=== PATIENT | female | born 1970 | race Caucasian/White ===

== ENCOUNTER 2017-09-01 16:49 | Emergency (ER) | payer SELFPAY ==
[~2017-09-01] VITALS: Ht 162.6 cm; Wt 80.0 kg
[2017-09-01] MEDS ORDERED: KETOROLAC 30MG/ML VIAL IV STA (19:36)
[2017-09-01] MEDS ORDERED: ONDANSETRON HCL 4MG/2ML VIAL IV STA (19:36)
[2017-09-01] MEDS ORDERED: SODIUM CHLORIDE 0.9% 1,000 ML IV ONE (19:36)
[2017-09-01 20:02] LABS: BASOPHILS % 0.8 % (0.0-2.0); EOSINOPHILS % 1.8 % (0.0-5.0); HEMOGLOBIN. 14.4 g/dL (12.0-16.0); LYMPHOCYTES % 36.6 % (20.0-50.0); MEAN CORPUSCULAR HEMOGLOBIN 30.9 pg (28.0-32.0); MEAN PLATELET VOLUME 7.7 fl (7.4-10.4); MONOCYTES % 8.3 % (2.0-8.0); NEUTROPHILS % 52.5 % (40.0-76.0); PLATELET 268 x1000/uL (130-400); RED BLOOD CELL COUNT 4.67 mill/uL (4.2-5.4); RED CELL DISTRIBUTION WIDTH 13.4 % (11.6-14.6)
[2017-09-01 20:05] LABS: CHLORIDE 106 mEq/L (98-107)
[2017-09-01 20:07] LABS: PROTHROMBIN TIME 10.4 sec (9.4-11.6)
[2017-09-01 20:15] LABS: CARBON DIOXIDE 27 mEq/L (21-32)
[2017-09-01 22:45] VITALS: BP 127/79
[2017-09-01] MEDS ORDERED: ACETAMINOPHEN WITH CODEINE 300/30MG TABLET PO ONE (22:45)
== END 2017-09-01 22:40 | disposition home or self-care (01) ==
LOC: ER 16:58
DX: K80.50 Calculus of bile duct without cholangitis or cholecystitis without obstruction (principal); K57.30 Diverticulosis of large intestine without perforation or abscess without bleeding; N83.202 Unspecified ovarian cyst, left side; D25.9 Leiomyoma of uterus, unspecified
CPT/HCPCS: 36415; 74176; 80053; 83690; 85025; 85610; 96361; 96374; 96375; 99285; J1885; J2405; J7030; Z7610

== ENCOUNTER 2019-06-24 23:14 | Emergency (ER) | payer OTHER, MEDICAID ==
[~2019-06-24] VITALS: Ht 172.7 cm; Wt 100.0 kg
[2019-06-25] MEDS ORDERED: IBUPROFEN 600MG TABLET PO ONE (00:45)
[2019-06-25 03:40] VITALS: BP 159/89
== END 2019-06-25 03:40 | disposition home or self-care (01) ==
LOC: ER 23:14
DX: S90.32XA Contusion of left foot, initial encounter (principal); W25.XXXA Contact with sharp glass, initial encounter; Y93.89 Activity, other specified; Y92.89 Other specified places as the place of occurrence of the external cause; Y99.8 Other external cause status; J45.909 Unspecified asthma, uncomplicated; Z90.49 Acquired absence of other specified parts of digestive tract; Z98.890 Other specified postprocedural states; Z90.89 Acquired absence of other organs; F17.200 Nicotine dependence, unspecified, uncomplicated
CPT/HCPCS: 73630; 99283

== ENCOUNTER 2021-10-03 12:29 | Emergency (ER) | payer OTHER ==
[~2021-10-03] VITALS: Ht 177.8 cm; Wt 91.0 kg
[~2021-10-03 12:29] MED LIST: CLOT21CR VG; METF-416 PO
[2021-10-03] MEDS ORDERED: ACETAMINOPHEN 325MG TABLET PO ONE (14:45)
[2021-10-03] MEDS ORDERED: IBUPROFEN 600MG TABLET PO ONE (16:15)
[2021-10-03 16:19] LABS: BASOPHILS % 0.3 % (0.0-2.0); EOSINOPHILS % 0.5 % (0.0-5.0); HEMATOCRIT. 43.9 % (36.0-48.0); HEMOGLOBIN. 14.7 g/dL (12.0-16.0); LYMPHOCYTES % 12.7 % (20.0-50.0); MEAN CORPUSCULAR HEMOGLOBIN 29.8 pg (28.0-32.0); MEAN CORPUSCULAR VOLUME 89.4 fL (81.0-99.0); MONOCYTES % 7.9 % (2.0-8.0); NEUTROPHILS % 78.6 % (40.0-76.0); PLATELET 267 x1000/uL (130-400); RED BLOOD CELL COUNT 4.91 mill/uL (4.2-5.4); RED CELL DISTRIBUTION WIDTH 13.3 % (11.6-14.6)
[2021-10-03 16:29] LABS: CHLORIDE 105 mEq/L (98-107)
[2021-10-03] MEDS ORDERED: CYCLOBENZAPRINE 10MG TABLET PO ONE (16:30)
[2021-10-03 16:45] LABS: CLARITY URINE CLEAR (CLEAR); COLOR URINE YELLOW (YELLOW); KETONES URINE TRACE (NEGATIVE); LEUKOCYTE ESTERASE URINE TRACE (NEGATIVE); NITRITE URINE NEGATIVE (NEGATIVE); OCCULT BLOOD URINE NEGATIVE (NEGATIVE); PH URINE 6.5 (4.5-8.0); PROTEIN URINE TRACE (NEGATIVE); SPECIFIC GRAVITY URINE 1.027 (1.005-1.030); UROBILINOGEN URINE 0.2 E.U./dL (0.2-1.0)
[2021-10-03] MEDS ORDERED: IBUP-2028 MT (19:03)
[2021-10-03] MEDS ORDERED: CIPR-263 MT (19:03)
[2021-10-03] MEDS ORDERED: CYCL10TA7 MT (19:03)
[2021-10-03 19:40] VITALS: BP 135/77
== END 2021-10-03 19:40 | disposition home or self-care (01) ==
LOC: ER 12:51
DX: N39.0 Urinary tract infection, site not specified (principal); M79.18 Myalgia, other site; J45.909 Unspecified asthma, uncomplicated; E11.9 Type 2 diabetes mellitus without complications; Z87.440 Personal history of urinary (tract) infections; Z90.49 Acquired absence of other specified parts of digestive tract; Z79.899 Other long term (current) drug therapy
CPT/HCPCS: 36415; 71045; 73030; 73562; 73630; 80053; 81003; 85025; 93005; 99285

== ENCOUNTER 2022-06-06 04:16 | Emergency (ER) | payer OTHER ==
[~2022-06-06] VITALS: Ht 172.7 cm; Wt 95.0 kg
[~2022-06-06 04:16] MED LIST changes: +CIPR-263 MT; +CYCL10TA21 MT; +IBUP-2028 MT
[2022-06-06 04:26] VITALS: BP 160/93
[2022-06-06 05:20] LABS: CLARITY URINE CLEAR (CLEAR); COLOR URINE YELLOW (YELLOW); KETONES URINE TRACE (NEGATIVE); LEUKOCYTE ESTERASE URINE NEGATIVE (NEGATIVE); NITRITE URINE NEGATIVE (NEGATIVE); OCCULT BLOOD URINE NEGATIVE (NEGATIVE); PROTEIN URINE TRACE (NEGATIVE); SPECIFIC GRAVITY URINE 1.033 (1.005-1.030); UROBILINOGEN URINE 0.2 E.U./dL (0.2-1.0)
[2022-06-06] MEDS ORDERED: ACYC200C31 MT (06:06)
[2022-06-06] MEDS ORDERED: FLUC150T46 MT (06:06)
== END 2022-06-06 06:20 | disposition home or self-care (01) ==
LOC: ER 04:16
DX: B00.89 Other herpesviral infection (principal); B37.3 Candidiasis of vulva and vagina
CPT/HCPCS: 81003; 81025; 99283

== ENCOUNTER 2023-11-25 07:41 | Emergency (ER) | payer OTHER ==
[~2023-11-25] VITALS: Ht 175.3 cm; Wt 65.0 kg
[~2023-11-25 07:41] MED LIST changes: +ACYC200C31 MT; +FLUC150T46 MT
[2023-11-25 07:47] VITALS: O2SAT 98
[2023-11-25] MEDS: SODIUM CHLORIDE 0.9% 1,000 ML IV ONE ×2 (08:34→09:49)
[2023-11-25 08:40] LABS: BASOPHILS % 0.2 % (0.0-2.0); EOSINOPHILS % 0.1 % (0.0-5.0); HEMATOCRIT. 53.5 % (36.0-48.0); HEMOGLOBIN. 17.3 g/dL (12.0-16.0); LYMPHOCYTES % 13.4 % (20.0-50.0); MEAN CORPUSCULAR HEMOGLOBIN 30.5 pg (28.0-32.0); MEAN CORPUSCULAR HGB CONC 32.3 g/dL (31.0-37.0); MEAN CORPUSCULAR VOLUME 94.3 fL (81.0-99.0); MEAN PLATELET VOLUME 10.5 fl (7.4-10.4); MONOCYTES % 2.9 % (2.0-8.0); NEUTROPHILS % 83.4 % (40.0-76.0); PLATELET 334 x1000/uL (130-400); RED BLOOD CELL COUNT 5.68 mill/uL (4.2-5.4); RED CELL DISTRIBUTION WIDTH 14.1 % (11.6-14.6); WHITE BLOOD COUNT 19.9 x1000/uL (4.5-11.0)
[2023-11-25 09:01] LABS: ALANINE AMINOTRANSFERASE 99 IU/L (10-49); ALBUMIN 4.6 g/dL (3.2-4.8); ASPARTATE AMINOTRANSFERASE 48 IU/L (<34); BILIRUBIN TOTAL 0.7 mg/dL (0.1-1.0); CALCIUM 10.2 mg/dL (8.7-10.4); CARBON DIOXIDE 22 mEq/L (21-32); CHLORIDE 100 mEq/L (98-107); CREATINE KINASE 18 IU/L (34-145); CREATININE 1.3 mg/dL (0.6-1.0); POTASSIUM 4.3 mEq/L (3.5-5.1); PROTEIN TOTAL 8.8 g/dL (6.0-8.3); SODIUM 139 mEq/L (136-145); TROPONIN I HIGH SENSITIVITY 11 ng/L (3.0-34); UREA NITROGEN BLOOD 45 mg/dL (9-23)
[2023-11-25 09:07] LABS: ETHANOL BLOOD < 10 mg/dL (<10)
[2023-11-25 09:09] LABS: GLUCOSE 851 mg/dL (70-105)
[2023-11-25] MEDS: INSULIN REGULAR (HUMULIN R) 300UNITS/3ML VIAL IV STA (09:58)
[2023-11-25] MEDS: INSULIN REGULAR (HUMULIN R) 300UNITS/3ML VIAL IV ONE (11:17)
[2023-11-25] MEDS ORDERED: DEXTROSE 50% WATER 50ML SYRINGE IV PRN (12:00)
[2023-11-25] MEDS ORDERED: INSULIN REGULAR (DRIP) 100 UNITS in SODIUM CHLORIDE 0.9% 99 ML IV SCH (12:00)
[2023-11-25] MEDS: INSULIN REGULAR 100U/100ML PMX 100 ML IV SCH (12:29)
[2023-11-25] MEDS: BLOOD SUGAR DIAGNOSTIC STRIP TEST SCH (12:29)
[2023-11-25] MEDS ORDERED: ACETAMINOPHEN 325MG TABLET PO PRN ×2 (15:45)
[2023-11-25] MEDS ORDERED: IPRATROPIUM/ALBUTEROL 0.5-3(2.5)MG/3ML NEB NEB PRN (15:45)
[2023-11-25] MEDS ORDERED: MAGNESIUM/ALUMINUM HYDROXIDE/SIMETHICONE 30ML UDC PO PRN (15:45)
[2023-11-25] MEDS ORDERED: ONDANSETRON HCL 4MG/2ML INJ IV PRN (15:45)
[2023-11-25] MEDS: DIPHENHYDRAMINE 50MG/ML VIAL IV NR (16:33)
[2023-11-25] MEDS: SODIUM CHLORIDE 0.45% 1,000 ML IV SCH (16:43)
[2023-11-25 18:05] VITALS: TEMP 98.3
[2023-11-25] MEDS ORDERED: LORAZEPAM 2MG/ML INJ IV PRN (18:30)
[2023-11-25] MEDS: ENOXAPARIN 40MG/0.4ML SYR SUBCUT SCH (18:55)
[2023-11-25] MEDS ORDERED: DIPHENHYDRAMINE 50MG/ML VIAL IV PRN (19:00)
[2023-11-25 21:03] LABS: BASOPHILS % 0.5 % (0.0-2.0); EOSINOPHILS % 0.2 % (0.0-5.0); HEMATOCRIT. 54.9 % (36.0-48.0); HEMOGLOBIN. 18.2 g/dL (12.0-16.0); LYMPHOCYTES % 27.6 % (20.0-50.0); MEAN CORPUSCULAR HEMOGLOBIN 30.2 pg (28.0-32.0); MEAN CORPUSCULAR HGB CONC 33.1 g/dL (31.0-37.0); MEAN CORPUSCULAR VOLUME 91.3 fL (81.0-99.0); MEAN PLATELET VOLUME 10.1 fl (7.4-10.4); NEUTROPHILS % 65.7 % (40.0-76.0); PLATELET 338 x1000/uL (130-400); RED BLOOD CELL COUNT 6.02 mill/uL (4.2-5.4); RED CELL DISTRIBUTION WIDTH 13.5 % (11.6-14.6); WHITE BLOOD COUNT 24.9 x1000/uL (4.5-11.0)
[2023-11-25 21:20] LABS: ALANINE AMINOTRANSFERASE 86 IU/L (10-49); ALBUMIN 4.5 g/dL (3.2-4.8); ASPARTATE AMINOTRANSFERASE 42 IU/L (<34); BILIRUBIN TOTAL 0.7 mg/dL (0.1-1.0); CALCIUM 10.4 mg/dL (8.7-10.4); CARBON DIOXIDE 27 mEq/L (21-32); CHLORIDE 117 mEq/L (98-107); CREATININE 1.2 mg/dL (0.6-1.0); GLUCOSE 209 mg/dL (70-105); PHOSPHORUS 1.8 mg/dL (2.5-4.9); POTASSIUM 3.7 mEq/L (3.5-5.1); PROTEIN TOTAL 8.3 g/dL (6.0-8.3); SODIUM 154 mEq/L (136-145); UREA NITROGEN BLOOD 44 mg/dL (9-23)
[2023-11-25 21:59] LABS: CALCIUM 10.1 mg/dL (8.7-10.4); CARBON DIOXIDE 26 mEq/L (21-32); CHLORIDE 119 mEq/L (98-107); CREATININE 1.2 mg/dL (0.6-1.0); GLUCOSE 141 mg/dL (70-105); UREA NITROGEN BLOOD 50 mg/dL (9-23)
[2023-11-25 22:00] LABS: SODIUM 157 mEq/L (136-145)
[2023-11-25] MEDS: AZTREONAM 2 GM in DEXT 5% WATER 100 ML IV SCH (23:30)
[2023-11-26 01:00] LABS: CARBON DIOXIDE 27 mEq/L (21-32); CHLORIDE 119 mEq/L (98-107); CREATININE 1.2 mg/dL (0.6-1.0); GLUCOSE 133 mg/dL (70-105); POTASSIUM 4.2 mEq/L (3.5-5.1); SODIUM 155 mEq/L (136-145); UREA NITROGEN BLOOD 52 mg/dL (9-23)
[2023-11-26 02:00] VITALS: BP 132/73; PULSE 114; RESP 16
[2023-11-26 04:44] LABS: BASOPHILS % 0.8 % (0.0-2.0); EOSINOPHILS % 0.1 % (0.0-5.0); HEMATOCRIT. 54.7 % (36.0-48.0); HEMOGLOBIN. 18.2 g/dL (12.0-16.0); LYMPHOCYTES % 20.6 % (20.0-50.0); MEAN CORPUSCULAR HEMOGLOBIN 30.2 pg (28.0-32.0); MEAN CORPUSCULAR HGB CONC 33.3 g/dL (31.0-37.0); MEAN CORPUSCULAR VOLUME 90.8 fL (81.0-99.0); MEAN PLATELET VOLUME 9.9 fl (7.4-10.4); MONOCYTES % 4.4 % (2.0-8.0); NEUTROPHILS % 74.1 % (40.0-76.0); PLATELET 336 x1000/uL (130-400); RED BLOOD CELL COUNT 6.02 mill/uL (4.2-5.4); RED CELL DISTRIBUTION WIDTH 13.9 % (11.6-14.6); WHITE BLOOD COUNT 29.3 x1000/uL (4.5-11.0)
[2023-11-26] MEDS: CLONIDINE 0.1MG TABLET PO PRN (04:50)
[2023-11-26 04:58] LABS: ALANINE AMINOTRANSFERASE 90 IU/L (10-49); ALBUMIN 4.4 g/dL (3.2-4.8); ASPARTATE AMINOTRANSFERASE 92 IU/L (<34); BILIRUBIN TOTAL 0.6 mg/dL (0.1-1.0); CALCIUM 9.7 mg/dL (8.7-10.4); CARBON DIOXIDE 28 mEq/L (21-32); CHLORIDE 119 mEq/L (98-107); CREATININE 1.2 mg/dL (0.6-1.0); GLUCOSE 159 mg/dL (70-105); POTASSIUM 3.5 mEq/L (3.5-5.1); PROTEIN TOTAL 8.6 g/dL (6.0-8.3); UREA NITROGEN BLOOD 57 mg/dL (9-23)
[2023-11-26 05:05] LABS: SODIUM 156 mEq/L (136-145)
[2023-11-26 07:01] LABS: CALCIUM 9.6 mg/dL (8.7-10.4); CARBON DIOXIDE 28 mEq/L (21-32); CHLORIDE 119 mEq/L (98-107); CREATININE 1.1 mg/dL (0.6-1.0); GLUCOSE 134 mg/dL (70-105); POTASSIUM 3.5 mEq/L (3.5-5.1); UREA NITROGEN BLOOD 55 mg/dL (9-23)
[2023-11-26 08:53] LABS: SODIUM 156 mEq/L (136-145)
== END 2023-11-26 09:15 | disposition left against medical advice (07) ==
LOC: ER 08:08 → CANBEDREQ 11-26 09:14 → ER 11-26 09:15
DX: E11.65 Type 2 diabetes mellitus with hyperglycemia (principal); E86.0 Dehydration; E11.00 Type 2 diabetes mellitus with hyperosmolarity without nonketotic hyperglycemic-hyperosmolar coma (NKHHC); J45.909 Unspecified asthma, uncomplicated; Z87.440 Personal history of urinary (tract) infections; F15.10 Other stimulant abuse, uncomplicated; Z98.890 Other specified postprocedural states; Z90.49 Acquired absence of other specified parts of digestive tract; Z79.899 Other long term (current) drug therapy
CPT/HCPCS: 80053 ×2; 80048 ×2; 80320; 82550; 82962 ×2; 83735 ×2; 84100 ×2; 85025 ×2; 87040; 84484; 36415 ×2; 84145; 71045; 93005; 96361; 96365; 96372; 96375; 99285; J3490; J1200; J1650; J1815 ×2; J7060; J7030; Z7610 ×2; J7050; G0480

== ENCOUNTER 2025-08-11 15:08 | Inpatient (IN) | payer OTHER ==
[~2025-08-11] VITALS: Ht 175.3 cm; Wt 90.7 kg
[~2025-08-11 15:08] MED LIST changes: +ACET-2708 MT; -ACYC200C31 MT; -CIPR-263 MT; +CLOT15CR5 TP; -CLOT21CR VG; -CYCL10TA21 MT; -FLUC150T46 MT; -IBUP-2028 MT; +INSU100I28 SQ; +INSU100V43 SQ; -METF-416 PO; +METR-167 MT
[2025-08-11 15:26] VITALS: O2SAT 99
[2025-08-11 16:22] LABS: BASOPHILS % 1.0 % (0.0-2.0); EOSINOPHILS % 1.7 % (0.0-5.0); HEMATOCRIT. 40.3 % (36.0-48.0); HEMOGLOBIN. 13.7 g/dL (12.0-16.0); LYMPHOCYTES % 46.3 % (20.0-50.0); MEAN PLATELET VOLUME 8.7 fl (7.4-10.4); MONOCYTES % 6.0 % (2.0-8.0); NEUTROPHILS % 45.0 % (40.0-76.0); PLATELET 296 x1000/uL (130-400); RED BLOOD CELL COUNT 4.67 mill/uL (4.2-5.4); RED CELL DISTRIBUTION WIDTH 13.1 % (11.6-14.6)
[2025-08-11 16:37] LABS: CREATININE 0.7 mg/dL (0.6-1.0); UREA NITROGEN BLOOD 10 mg/dL (9-23)
[2025-08-11] MEDS: ONDANSETRON HCL 4MG/2ML INJ IV ONE (16:37)
[2025-08-11] MEDS: KETOROLAC 15MG/ML VIAL IV ONE (16:37)
[2025-08-11] MEDS: MORPHINE SULFATE 4 MG/ML INJ (FOR IV/IM USE) IV ONE (16:37)
[2025-08-11 16:38] LABS: TROPONIN I HIGH SENSITIVITY 4 ng/L (3.0-34)
[2025-08-11 16:40] LABS: ASPARTATE AMINOTRANSFERASE 20 IU/L (<34); BILIRUBIN DIRECT < 0.1 mg/dL (<=3.0); BILIRUBIN TOTAL 0.4 mg/dL (0.1-1.0); PROTEIN TOTAL 6.5 g/dL (6.0-8.3)
[2025-08-11 16:43] LABS: INR 1.0
[2025-08-11 17:26] LABS: CLARITY URINE CLEAR (CLEAR); COLOR URINE YELLOW (YELLOW); GLUCOSE URINE 1+ (NEGATIVE); KETONES URINE NEGATIVE (NEGATIVE); LEUKOCYTE ESTERASE URINE NEGATIVE (NEGATIVE); NITRITE URINE NEGATIVE (NEGATIVE); OCCULT BLOOD URINE NEGATIVE (NEGATIVE); PH URINE 5.5 (4.5-8.0); PROTEIN URINE 1+ (NEGATIVE); SPECIFIC GRAVITY URINE 1.032 (1.005-1.030); UROBILINOGEN URINE 0.2 E.U./dL (0.2-1.0)
[2025-08-11 17:50] LABS: BACTERIA URINE 1+; RBC URINE NONE SEEN /hpf (0-2); SQUAMOUS EPITHELIAL CELL URINE 2+ /lpf (RARE/1+)
[2025-08-11 17:51] LABS: MUCUS URINE 1+ /lpf (< = 2+)
[2025-08-11] MEDS: INSULIN REGULAR (HUMULIN R) 1000UNITS/10ML VIAL IV ONE (19:33)
[2025-08-11] MEDS: SODIUM CHLORIDE 0.9% 1,000 ML IV ONE (19:33)
[2025-08-11] MEDS ORDERED: IPRATROPIUM/ALBUTEROL 0.5-3(2.5)MG/3ML NEB HHN PRN (21:00)
[2025-08-11] MEDS ORDERED: ONDANSETRON HCL 4MG/2ML INJ IV PRN (21:00)
[2025-08-11] MEDS ORDERED: CLONIDINE 0.1MG TABLET PO PRN (21:00)
[2025-08-11] MEDS ORDERED: GUAIFENESIN 200MG/10ML SUGAR FREE UDC PO PRN (21:00)
[2025-08-11] MEDS ORDERED: ACETAMINOPHEN 325MG TABLET PO PRN ×2 (21:00)
[2025-08-11] MEDS ORDERED: DEXTROSE 50% WATER 50ML SYRINGE IV PRN (21:15)
[2025-08-11] MEDS ORDERED: MAGNESIUM 2 G PREMIX 50 ML IV NR (22:00)
[2025-08-11] MEDS: MAGNESIUM 2 G PREMIX 50 ML IV NR (23:35)
[2025-08-11] MEDS ORDERED: IOHEXOL-300 100 ML BOTTLE ONE (23:53)
[2025-08-12] MEDS ORDERED: MORPHINE SULFATE 2 MG/ML INJ (NOT FOR IM USE) IV PRN
[2025-08-12 03:01] VITALS: BP 130/93; PULSE 83; RESP 18; TEMP 36.3068
[2025-08-12] MEDS ORDERED: MORPHINE SULFATE 4 MG/ML INJ (FOR IV/IM USE) IV PRN (06:23)
[2025-08-12] MEDS ORDERED: NALOXONE HCL 0.4MG/ML VIAL IV PRN (06:30)
[2025-08-12] MEDS: BLOOD SUGAR DIAGNOSTIC STRIP TEST SCH (06:58)
[2025-08-12] MEDS ORDERED: MAGNESIUM 2 G PREMIX 50 ML IV PRN (07:00)
[2025-08-12 08:00] VITALS: BP 145/81; PULSE 77; RESP 18; TEMP 36.4; O2SAT 95
[2025-08-12 08:38] LABS: *AMPHETAMINES SCREEN URINE PRESUMPTIVE POSITIVE (NEGATIVE)
[2025-08-12 08:40] LABS: *BARBITURATES SCREEN URINE NEGATIVE (NEGATIVE); *BENZODIAZEPINES SCREEN URINE NEGATIVE (NEGATIVE); *COCAINE SCREEN URINE NEGATIVE (NEGATIVE); CANNABINOID URINE SCREEN NEGATIVE (NEGATIVE); ECSTASY MDMA SCREEN URINE CONF.TEST INDICATED (NEGATIVE); METHADONE URINE SCREEN NEGATIVE (NEGATIVE); OPIATES URINE SCREEN NEGATIVE (NEGATIVE); PHENCYCLIDINE URINE SCREEN NEGATIVE (NEGATIVE)
[2025-08-12] MEDS: POLYETHYLENE GLYCOL 3350 (17GM) 1 DOSE PACK PO SCH (09:05)
[2025-08-12] MEDS: DOCUSATE SODIUM 100MG CAPSULE PO SCH (09:06)
[2025-08-12] MEDS: INSULIN LISPRO 100 UNITS/ML SUBCUT SCH (09:34)
[2025-08-12 12:00] VITALS: BP 131/59; PULSE 75; RESP 18; TEMP 36; O2SAT 96
[2025-08-12 12:27] LABS: CREATININE 0.6 mg/dL (0.6-1.0); TRIGLYCERIDE 168 mg/dL (0-150); UREA NITROGEN BLOOD 7 mg/dL (9-23)
[2025-08-12 12:28] LABS: LDL CHOLESTEROL 173 mg/dL (5-100)
[2025-08-12 12:29] LABS: ASPARTATE AMINOTRANSFERASE 37 IU/L (<34); BILIRUBIN TOTAL 0.5 mg/dL (0.1-1.0); PHOSPHORUS 3.3 mg/dL (2.5-4.9); PROTEIN TOTAL 6.3 g/dL (6.0-8.3)
[2025-08-12 12:31] LABS: T4 FREE 0.98 ng/dL (0.89-1.76)
[2025-08-12] MEDS ORDERED: PANT40TA51 PO (13:32)
[2025-08-12] MEDS ORDERED: LIP40 MT (13:32)
[2025-08-12 13:55] VITALS: BP 131/59; PULSE 75; RESP 18; TEMP 96.8
[2025-08-12] MEDS ORDERED: INSULIN LISPRO 100 UNITS/ML SUBCUT SCH (16:40)
[2025-08-12] MEDS ORDERED: INSULIN GLARGINE 100 UNITS/ML SUBCUT SCH (22:00)
[2025-08-13] MEDS ORDERED: PANTOPRAZOLE 40MG DR TABLET PO SCH (06:40)
== END 2025-08-12 14:17 | disposition home or self-care (01) | DRG 244 ==
LOC: ER 15:08 → 7EST 19:36 → EDBEDREQTM 19:53 → EDBEDREQ 19:53 → EDBEDREQSVC 19:53 → ENRESERV 23:42
PROVIDERS: ADMIT Hospitalist; ATTEND Hospitalist
DX: K57.30 Diverticulosis of large intestine without perforation or abscess without bleeding (principal); K56.7 Ileus, unspecified; D25.9 Leiomyoma of uterus, unspecified; E11.65 Type 2 diabetes mellitus with hyperglycemia; J45.909 Unspecified asthma, uncomplicated; F17.200 Nicotine dependence, unspecified, uncomplicated; K59.00 Constipation, unspecified; E83.42 Hypomagnesemia; E78.5 Hyperlipidemia, unspecified; F15.10 Other stimulant abuse, uncomplicated; E66.9 Obesity, unspecified; Z79.4 Long term (current) use of insulin; Z88.0 Allergy status to penicillin; Z90.49 Acquired absence of other specified parts of digestive tract; Z79.899 Other long term (current) drug therapy; Z68.29 Body mass index [BMI] 29.0-29.9, adult; Z85.038 Personal history of other malignant neoplasm of large intestine; E11.9 Type 2 diabetes mellitus without complications
CPT/HCPCS: 36415; 74177; 80048; 80053; 80061; 80076; 80305; 81003; 82550; 82962; 83735; 83880; 84100; 84439; 84443; 84484; 85025; 96374; 96375; 99285; J1815; J1885; J2270; J2405; J3475; J7030; Q9967